=== PATIENT | female | born 1980 | race Caucasian/White ===

== ENCOUNTER 2021-04-03 12:35 | Emergency (ER) | payer BC, OTHER, SELFPAY ==
[2021-04-03 12:37] VITALS: BP 145/84; PULSE 87; RESP 16; TEMP 35.9; O2SAT 98; BMI 35.6
--- NOTE | 2021-04-03 14:21 | EDS_ITS ---
HPI History of Present Illness Chief Complaint: Cough Informant: patient Narrative Narrative: Patient started with Covid symptoms on Thursday. She was tested on Thursday and found to be positive. She contacted her physician and was recommended to come in here to get referral for monoclonal antibody therapy. Patient started with some sore throat and myalgias. She has had some mild fevers. She has had some slight cough but no productivity or dyspnea. No nausea vomiting diarrhea or abdominal pain. Nothing really makes her symptoms better or worse. She has not had vaccines. Her test was done through [facility] but sounds like might have been a home swab. For this reason I will order another one today although I will not make her stay for this. She does have symptoms, exposure and a positive test so I think this is truly positive. PFSH PFS Medical History Vitamin D deficiency Allergy/AdvReac Type Severity Reaction Status Date / Time codeine Allergy Anaphylaxis Verified 04/03/21 12:36 Social History Smoking Status: Never smoker ROS ROS ED Constitutional Constitutional ED: Reports fever(s) and subjective Eyes Eyes: Denies blurry vision ENT ENT ED: Reports rhinorrhea and sore throat Cardiovascular Cardiovascular: Denies chest pain or palpitations Respiratory/Chest Respiratory/Chest: Reports cough; Denies dyspnea or sputum Gastrointestinal Gastrointestinal: Denies abdominal pain, diarrhea, nausea or vomiting Genitourinary Genitourinary ED: Denies dysuria Musculoskeletal Musculoskeletal: Reports myalgias Integumentary Denies rash Neurologic Neurologic: Denies headache(s) Endocrine Endocrinology: Denies polydipsia or polyuria Allergic/Immunologic Allergic/Immunologic ED: Denies mouth swelling or urticaria EXAM Physical Exam Const Vital Signs: 04/03/21 12:37 04/03/21 13:02 Temperature 96.7 F L Temperature Source Temporal Pulse Rate 87 Respiratory Rate 16 Respiratory Effort Non-Labored Short of Breath Blood Pressure 145/84 H Blood Pressure Mean 104 Pulse Ox 98 Oxygen Delivery Method Room Air Positive well nourished, well developed and obese General Appearance ED: well developed and NAD Nutritional Appearance: obese HEENT Reports moist mucous membranes; Denies dry mucous membranes Negative for trauma or tenderness Mouth ED: No dry mucous membranes Mouth: No dry mucous membranes Eyes General Eye ED: Negative for pale conjunctiva or scleral icterus Neck no JVD Chest Wall inspection of chest normal Resp normal respiratory effort and clear to auscultation bilaterally Effort and Inspection: Negative for pain with movement Auscultation: Negative for rales, rhonchi or wheezes Cardio regular rate, regular rhythm and no murmurs GI normal to inspection, nondistended, normoactive bowel sounds and non-tender Palpation: soft Back/Spine no CVA tenderness Extremity normal to inspection General Extremety ED: Negative for edema or tenderness General Extremity: Negative for edema Neuro Sensorium / Orientation: alert Psych mental status grossly normal Skin no rashes or lesions noted MDM MDM MDM Narrative Medical decision making narrative: Patient has no hypoxia. She has no dyspnea. She is not having vomiting. I do not think she needs blood work or imaging. I will refer her for monoclonal therapy based on her symptoms, positive outpatient test and her BMI. Discharge Plan Triage Chief Complaint: Cough ED Provider: Ahsan Canas Dx/Rx/DC Orders Clinical Impression: COVID Instructions: Coronavirus Disease 2019 (COVID-19): Caring for Yourself or Others Other Ambulatory Orders: COVID Outpatient Monoclonal Antibody Referral (Routine) Timeframe: 1 Day Facility: [facility] - Location: [facility] Ordered By: Dr. Ahsan Canas Primary Care Provider: Care Physician,No Primary Referrals: Kim Avina MD [STAFF PHYSICIAN] - 1 Week if not improving Care Physician,No Primary [Primary Care Provider] - Disposition Disposition: Home, Self Care
== END 2021-04-03 14:36 | disposition home or self-care (01) ==
PROVIDERS: Emergency Provider Emergency Medicine
DX: U07.1 COVID-19 (principal); E66.9 Obesity, unspecified; Z68.36 Body mass index [BMI] 36.0-36.9, adult
CPT/HCPCS: 87635; 99283; U0005; U0003

== ENCOUNTER 2021-04-06 10:22 | Outpatient (CLI) | payer BC, OTHER, SELFPAY ==
[2021-04-06] MEDS: 0.9% Saline Lock 10 ML Syringe IV (10:46)
[2021-04-06 10:47] VITALS: BP 126/66; PULSE 85; RESP 16; TEMP 37.2; O2SAT 100; BMI 33.9
[2021-04-06 11:38] VITALS: BP 118/67; PULSE 80; RESP 16; TEMP 37.1; O2SAT 96
[2021-04-06 12:38] VITALS: BP 118/75; PULSE 79; RESP 16; TEMP 37.1; O2SAT 97
== END 2021-04-06 12:57 | disposition home or self-care (01) ==
LOC: MS3OUT 10:22 → MS3 10:24
PROVIDERS: Referring Provider Nurse Practitioner Adult Health; Visit Provider Nurse Practitioner Adult Health
DX: Z23 Encounter for immunization (principal); U07.1 COVID-19
CPT/HCPCS: J7050; M0245; Q0245; A4216

== ENCOUNTER 2022-09-27 09:18 | Emergency (ER) | payer BC, SELFPAY ==
[2022-09-27 09:19] VITALS: BP 162/100; PULSE 70; RESP 18; TEMP 36.2; O2SAT 99
[2022-09-27 09:28] VITALS: BMI 39.4
--- NOTE | 2022-09-27 09:43 | CT_ITS ---
STUDY: CT ABDOMEN AND PELVIS WITHOUT CONTRAST REASON FOR EXAM: Female, 41 years old. Pain -- Abrupt pain left lower quadrant RADIATION DOSAGE (If Supplied By Facility): CTDIvol = ( 22.27 ) mGy, DLP = ( 1190.57 ) mGycm TECHNIQUE: Transaxial images were obtained from the dome of the diaphragm to the symphysis pubis without oral contrast, and without intravenous contrast. Sagittal and coronal images were reconstructed. Individualized dose optimization techniques were used for this CT. COMPARISON: None. FINDINGS: The visualized lung bases are unremarkable. The visualized portions of the heart are within normal limits. Normal liver. There are surgical clips in the gallbladder fossa consistent with a prior cholecystectomy. Normal spleen. Normal pancreas. The right adrenal gland is moderately enlarged measuring 3.58 cm with dense peripheral rim calcification in its capsule most likely due to an old traumatic injury with an adrenal hematoma formation and calcification or sequela from prior inflammation or infection or granulomatous process with subsequent rim calcification. No malignant process is present. Normal left adrenal gland. A large simple cyst is present in the superior pole of the right kidney as well measuring 10.36 x 9.05 cm. The lower half of the right kidney is normal. No hydronephrosis is present. The left kidney is moderately atrophic. A 2 mm calyceal stone is seen in the lower pole of the left kidney. There are 3-4 small simple cysts within the left kidney as well. No left hydronephrosis or hydroureter is present. Moderately enlarged soft tissue mass of the left adnexa appears to represent an enlarged left ovary maximally measuring 7.29 x 6.84 cm, but it is difficult to separate the left adnexal mass from the left side of the uterus, therefore a pelvic ultrasound is recommended to determine if this is ovarian or disc is a left-sided uterine fibroid. The right adnexa is unremarkable. The uterus is otherwise unremarkable. Normal right kidney. Normal left kidney. Normal visualized stomach. Normal small intestine. Normal colon. The appendix is visualized and appears normal. Normal abdominal aorta. Normal inferior vena cava. Normal retroperitoneum. Normal urinary bladder. Normal abdominal wall. Normal osseous structures. CT/Abdomen/Pelvis without Cont IMPRESSION: 1. Moderately enlarged soft tissue mass of the left adnexa appears to represent an enlarged left ovary maximally measuring 7.29 x 6.84 cm, but it is difficult to separate the left adnexal mass from the left side of the uterus, therefore a pelvic ultrasound is recommended to determine if this is ovarian or disc is a left-sided uterine fibroid. The right adnexa is unremarkable. The uterus is otherwise unremarkable. 2. The right adrenal gland is moderately enlarged measuring 3.58 cm with dense peripheral rim calcification in its capsule most likely due to an old traumatic injury with an adrenal hematoma formation and calcification or sequela from prior inflammation or infection or granulomatous process with subsequent rim calcification. No malignant process is present. Normal left adrenal gland. 3. A large simple cyst is present in the superior pole of the right kidney as well measuring 10.36 x 9.05 cm. The lower half of the right kidney is normal. No hydronephrosis is present. 4. The left kidney is moderately atrophic. A 2 mm calyceal stone is seen in the lower pole of the left kidney. There are 3-4 small simple cysts within the left kidney as well. No left hydronephrosis or hydroureter is present. Electronically Signed: Michael Negrete MD at 12:32 EDT ,
[2022-09-27 10:06] LABS: Absolute Lymphocyte Count 0.97 X10^3/uL (0.83-4.51); Absolute Neutrophil Count 6.8 X10^3/uL (2.0-7.7); Basophil# 0.02 X10^3/uL; Basophil% 0.2 % (0-1); Eosinophil# 0.02 X10^3/uL; Eosinophils% 0.2 % (0-5); Hematocrit 35.1 % (37-47); Hemoglobin 10.7 g/dL (12.0-15.0); Lymphocyte # 0.97 X10^3/ul (0.83-4.51); Lymphocyte % 11.7 % (19-41); Mean Corp Hgb Conc 30.5 g/dL (32-36); Mean Corpuscular Hgb 23.5 pg (27.0-32.0); Mean Platelet Vol. 9.5 fl (6.2-12.0); Monocyte# 0.42 X10^3/uL; Monocyte% 5.1 % (0-10); NRBC Flagged by Analyzer 0 % (0-5); Neutrophil # 6.81 X10^3/uL (2.7-7.7); Neutrophil % 82.4 % (47-70); Platelet Count 235 K/mm3 (150-450); RBC Distribution Width CV 14.4 % (11.6-14.6); RBC Distribution Width SD 39.9 fl (35.1-43.9); Red Blood Count 4.56 M/mm3 (4.2-5.4); White Blood Count 8.3 K/mm3 (4.4-11.0)
[2022-09-27] MEDS: Ondansetron 4 MG/2 ML Vial IV (10:07)
[2022-09-27] MEDS: Ketorolac 15 MG/ML Vial IV (10:07)
[2022-09-27] MEDS: 0.9% Normal Saline 1,000 ML 125 ML IV (10:07)
--- NOTE | 2022-09-27 10:07 | EDS_ITS ---
HPI HPI - GI History of Present Illness Chief Complaint: Abd Pain Detail of Chief Complaint: Acute lower abdominal pain Informant: patient, spouse/S.O. and family Abdominal Pain/Flank Pain Onset: Today and Hours Context: Sudden Onset Timing: Continuous Quality: Sharp Location: RLQ and LLQ Current Severity: Moderate Maximum Severity: Severe Worsened by: Movement Relieved by: Nothing Nausea/Vomiting/Emesis GI Symptom: Positive for Nausea Onset: Hours Diarrhea/Melena/Hematochezia GI Symptom: Negative for Diarrhea, Melena or Hematochezia Associated Symptoms Associated Symptoms: Negative for Dysuria, Frequency, Hematuria or Urgency LMP: 1 week ago Narrative Narrative: Patient is a 41-year-old woman who presents with abrupt onset of lower abdominal pain while walking the dogs. She states she had similar episode when she was diagnosed with food poisoning. She does complain of nausea and vomiting into the emergency department. She denies diarrhea. Last bowel movement yesterday. No change in color, consistency or caliber of her stool. She denies dysuria, frequency, urgency or hematuria. She denies history of renal ureterolithiasis. She denies history of diverticulosis or diverticulitis. She has had problems with constipation. There is no history of trauma. Mother informed she has history of adrenal cyst. She is sexually active. She denies symptoms of . Last menses was 1 week ago and normal. She denies history of endometriosis or ovarian cyst. Prior similar symptoms: Yes (Food poisoning) Recent Illness/Hospitalization: No PFSH PFS Medical History (Updated 09/27/22 @ 15:[address] Clement Landeros MD) Encounter for screening for COVID-19 Vitamin D deficiency Home Medications benzonatate 100 mg capsule 200 mg PO TID PRN cough #30 caps 04/08/21 [Rx Last Taken Unknown] ketorolac 10 mg tablet 10 mg PO Q6H 5 days #20 tabs 09/27/22 [Rx Last Taken Unknown] Allergy/AdvReac Type Severity Reaction Status Date / Time codeine Allergy Anaphylaxis Verified 09/27/22 09:23 Social History (Updated 09/27/22 @ 10:[address] Clement Landeros MD) household members: spouse Smoking Status: Never smoker alcohol intake: current alcohol intake frequency: holidays/special occasions only substance use type: does not use ROS ROS ED Constitutional Constitutional ED: Reports chills; Denies fever(s), subjective, sweats or weight loss ENT ENT ED: Reports rhinorrhea and other Details: Rhinorrhea due to allergies. ; Denies ear pain or sore throat Cardiovascular Cardiovascular: Denies chest pain, orthopnea, palpitations, paroxysmal nocturnal dyspnea or racing heartbeat Respiratory/Chest Respiratory/Chest: Denies cough, dyspnea, dyspnea on exertion, orthopnea or paroxysmal nocturnal dyspnea Gastrointestinal Gastrointestinal: Reports abdominal pain, nausea and vomiting; Denies constipation, diarrhea or melena Genitourinary Genitourinary ED: Reports LMP (females 10-50) Details: Comment: (1 week ago and normal with regard to color, duration and flow); Denies dysuria, hematuria or urinary frequency Musculoskeletal Musculoskeletal: Denies arthralgias, back pain, myalgias or neck pain Integumentary Denies Abrasions or rash Neurologic Neurologic: Denies headache(s), paresthesias or weakness Psychiatric Psychiatric: Denies anxiety or depression Endocrine Endocrinology: Denies polydipsia, polyphagia or polyuria Hematologic/Lymphatic Hematologic/Lymphatic: Denies easy bleeding or easy bruising EXAM Physical Exam Const Vital Signs: 09/27/22 09:19 09/27/22 12:20 Temperature 97.1 F L Temperature Source Temporal Pulse Rate 70 70 Respiratory Rate 18 16 Blood Pressure 162/100 H 141/70 H Blood Pressure Mean 120 93 Pulse Ox 99 99 Oxygen Delivery Method Room Air Room Air Positive well nourished, well developed and obese; Negative for cachectic or contractures General Appearance ED: well developed; Negative for cachectic, contractures, NAD or pallor Nutritional Appearance: obese; Negative for cachectic HEENT Reports dry mucous membranes normocephalic and atraumatic Mouth ED: Yes dry mucous membranes Mouth: dry mucous membranes Eyes PERRL and EOMs intact bilaterally General Eye ED: Negative for pale conjunctiva or scleral icterus Neck no lymphadenopathy, supple and no JVD Resp normal respiratory effort and clear to auscultation bilaterally Cardio regular rate, regular rhythm, S1 normal heart sound, S2 normal heart sound and no murmurs GI non-distended and no masses; Negative for non-tender Auscultation: hypoactive bowel sounds Palpation: soft, tender LLQ and guarding; Negative for rigid, hepatomegaly, splenomegaly, hernia, mass, pulsatile mass or rebound tenderness present Back/Spine no CVA tenderness Lumbar Spine / Lower Back: Negative for lumbar spinal tenderness Neuro CN's II-XII intact bilaterally and moves all extremities Sensorium / Orientation: alert Psych Mood & Affect: depressed Skin no wounds General Skin Exam: Negative for jaundice or pallor Lesions: no lesions Rashes: no rashes MDM MDM MDM Narrative Medical decision making narrative: Miguel diagnosis would include ureteral lithiasis, ovarian cyst, diverticulosis pneumoperitoneum. Will obtain CT of the abdomen and pelvis without contrast and she has allergy to contrast and because she had angioedema with codeine will not treat with any opiate analgesic. She received 50 mg of acute relic for her pain and 4 mg of Zofran for her nausea. CBC, BMP and UA were obtained. History & Record Review Discussion w/independent historian: Patient, Family and Significant other Additional record(s) reviewed:: Prior ED visit (Seen in 2020 for COVID. There is no other records available for review.) Lab Data Labs: Laboratory Results - last 24 hr 09/27/22 09/27/22 09/27/22 10:00 10:00 10:53 WBC 8.3 RBC 4.56 Hgb 10.7 L Hct 35.1 L MCV 77.0 L MCH 23.5 L MCHC 30.5 L RDW Std Deviation 39.9 RDW Coeff of Maura 14.4 Plt Count 235 MPV 9.5 Immature Gran % (Auto) 0.400 Neut % (Auto) 82.4 H Lymph % (Auto) 11.7 L [place] % (Auto) 5.1 Eos % (Auto) 0.2 Baso % (Auto) 0.2 Absolute Neuts (auto) 6.8 Absolute Lymphs (auto) 0.97 Nucleated RBC % 0 Sodium 138 Potassium 4.5 Chloride 107 Carbon Dioxide 24.0 Anion Gap 7 BUN 13 Creatinine 0.92 Estim Creat Clear Calc 88.13 Est GFR (MDRD) Af Amer 86 Est GFR (MDRD) Non-Af 71 BUN/Creatinine Ratio 14.2 Glucose 117 H Calcium 8.8 Urine Color Yellow Urine Clarity Clear Urine pH 7.0 Ur Specific [place] 1.010 Urine Protein 15 H Urine Glucose (UA) Normal Urine Ketones 5 H Urine Occult Blood 250 H Urine Nitrite Negative Urine Bilirubin Negative Urine Urobilinogen Normal Ur Leukocyte Esterase 500 H Urine RBC 25-50 SEEN Urine WBC 0 SEEN Ur Squamous Epith Cells 0 SEEN Urine Bacteria 0 SEEN Urine Mucus 0 SEEN Radiography Diagnostic Testing: Clinical Impression(s) from Imaging Studies Abdomen/Pelvis CT 09/27/22 09:43 IMPRESSION: 1. Moderately enlarged soft tissue mass of the left adnexa appears to represent an enlarged left ovary maximally measuring 7.29 x 6.84 cm, but it is difficult to separate the left adnexal mass from the left side of the uterus, therefore a pelvic ultrasound is recommended to determine if this is ovarian or disc is a left-sided uterine fibroid. The right adnexa is unremarkable. The uterus is otherwise unremarkable. 2. The right adrenal gland is moderately enlarged measuring 3.58 cm with dense peripheral rim calcification in its capsule most likely due to an old traumatic injury with an adrenal hematoma formation and calcification or sequela from prior inflammation or infection or granulomatous process with subsequent rim calcification. No malignant process is present. Normal left adrenal gland. 3. A large simple cyst is present in the superior pole of the right kidney as well measuring 10.36 x 9.05 cm. The lower half of the right kidney is normal. No hydronephrosis is present. 4. The left kidney is moderately atrophic. A 2 mm calyceal stone is seen in the lower pole of the left kidney. There are 3-4 small simple cysts within the left kidney as well. No left hydronephrosis or hydroureter is present. Electronically Signed: Michael Negrete MD at 12:32 EDT , Transvaginal US 09/27/22 12:49 IMPRESSION: 1. 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 2. The uterus is mildly enlarged measuring 10.6 x 8.7 x 6.4 cm. The uterine parenchyma is diffusely heterogeneous with coarsening of the parenchymal echotexture suggesting endometriosis. 3. Further evaluation with MRI of the pelvis with and without contrast is recommended in the nonacute setting. 4. The blood flow and Doppler signal of the ovaries was not well documented on this study, as the technologist states it was difficult to ascertain. This does not necessarily represent torsion/loss of blood flow but may be difficult because of the due to the moderate to large sized ovarian cysts occupying most of the parenchyma. If there is concern for torsion the patient should be sent back to the ultrasound department with additional attempts at evaluating flow and Doppler signal. Electronically Signed: Michael Negrete MD at 15:33 EDT Reading Location ID and State: [address] [place] [address] , Service support , Treatment and Re-Evaluation :: The had several questions which were answered to her satisfaction. She also requested referral to aircraft engine technician. Patient was informed of CAT scan results. Since one of the differentials would include ovarian torsion ultrasound of the pelvis with Doppler flow was ordered. Patient was made aware of this. Ultrasound reveals a 6.3 x 5.0 x 4.5 cm avascular ovoid mass appears to represent a chocolate cyst/endometrioma. Normal ovarian follicles were noted at the periphery. The right ovary measured 4.4 x 4.0 x 3.3. Centimeters and debris-filled avascular small right ovarian follicular cyst noted. Discharge Plan Triage Chief Complaint: Abd Pain ED Provider: Clement Landeros Dx/Rx/DC Orders Clinical Impression: Acute abdominal pain in left lower quadrant, Kidney stone on left side, Renal cyst, right, Benign cyst of left kidney, Ovarian mass, left, Atrophy of left kidney, Mass of right adrenal gland, Blood pressure elevated without history of HTN, Follicular cyst of right ovary Instructions: Treatment for Ovarian Cysts Prescriptions: New ketorolac 10 mg tablet 10 mg PO Q6H 5 Days Qty: 20 0RF No Action benzonatate 100 mg capsule 200 mg PO TID PRN (Reason: cough) Qty: 30 0RF Primary Care Provider: Care Physician,No Primary Referrals: Luke Ramos MD [Med Staff - Active Staff] - 5-7 Days Onel Kirk MD [Med Staff - Courtesy Staff] - 1 Week Care Physician,No Primary [Primary Care Provider] - Disposition Disposition: Home, Self Care
[2022-09-27 10:27] LABS: Anion Gap 7 (5-15); BUN 13 mg/dL (7-18); BUN/Creat Ratio 14.2 RATIO (10-20); Calcium,Total 8.8 mg/dL (8.5-10.1); Chloride 107 mmol/L (98-107); Creatinine, Serum 0.92 mg/dL (0.55-1.02); EST Glomerular Filtration Rate 71 mL/min (>60); Est Glom Filt Rate - Afr Amer 86 mL/min (>60); Estimated Creatinine Clearance 88.13 ml/min; Glucose 117 mg/dL (74-106); Potassium 4.5 mmol/L (3.5-5.1); Sodium Level 138 mmol/L (136-145)
[2022-09-27 11:01] LABS: Bacteria 0 SEEN /hpf (None Seen); Mucous, Urine 0 SEEN /hpf (<or=2+); Squamous Epithelial Cells - UA 0 SEEN /hpf (5-10); White Blood Cells 0 SEEN /hpf (0-5)
[2022-09-27 11:11] LABS: Color, Urine Yellow (Yellow); Glucose, Dipstick Normal (Normal); Ketone-Dipstick 5 mg/dl (Negative); Leukocyte Esterase-Dipstick 500 /ul (Negative); Nitrite-Dipstick Negative (Negative); Occult Blood-Urine 250 /ul (Negative); Protein-Dipstick 15 mg/dl (Negative); Urine Bilirubin Dipstick Negative (Negative); Urine Clarity Clear (Clear); Urine Urobilinogen Normal (Normal)
[2022-09-27 11:14] LABS: Red Blood Cells-Urine 25-50 SEEN /hpf (0-5)
[2022-09-27 12:20] VITALS: BP 141/70; PULSE 70; RESP 16; O2SAT 99
--- NOTE | 2022-09-27 12:49 | US_ITS ---
PROCEDURE: ULTRASOUND OF THE FEMALE PELVIS - COMPLETE REASON FOR EXAM: Female, 41 years old. Left adnexal mass SEEN ON CT LLQ PAIN TECHNIQUE: Transabdominal and Transvaginal TECHNICAL QUALITY: Adequate. COMPARISON: CT of abdomen and pelvis dated September 27, 2022 FINDINGS: The uterus is anteverted and is in a midline position. The uterus is mildly enlarged measuring 10.6 x 8.7 x 6.4 cm. The uterine parenchyma is diffusely heterogeneous with coarsening of the parenchymal echotexture suggesting endometriosis. There is no demonstrated myometrial mass. The endometrium measures 7.4 mm in thickness, and is hyperechoic. There is no demonstrated endometrial mass. There is a Nabothian cyst of the cervix. The right ovary is visualized. The right ovary measures 4.4 x 4.0 x 3.3 cm. A debris-filled avascular small right ovarian follicular cyst is present measuring 3.23 x 2.77 cm likely representing a degenerated follicular cyst/hemorrhagic cyst. There is no visualized right adnexal mass or complex lesion. The left ovary is visualized. The left ovary measures 6.3 x 5.0 x 4.5 cm. 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 Normal ovarian follicles at the periphery of the left ovary. There is no visualized left adnexal mass or complex lesion. The blood flow and Doppler signal of the ovaries was not well documented on this study, as the technologist states it was difficult to ascertain. This does not necessarily represent torsion/loss of blood flow but may be difficult because of the due to the moderate to large sized ovarian cysts occupying most of the parenchyma. If there is concern for torsion the patient should be sent back to the ultrasound department with additional attempts at evaluating flow and Doppler signal. There is no fluid in the cul-de-sac. US/Transvaginal Non- IMPRESSION: 1. 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 2. The uterus is mildly enlarged measuring 10.6 x 8.7 x 6.4 cm. The uterine parenchyma is diffusely heterogeneous with coarsening of the parenchymal echotexture suggesting endometriosis. 3. Further evaluation with MRI of the pelvis with and without contrast is recommended in the nonacute setting. 4. The blood flow and Doppler signal of the ovaries was not well documented on this study, as the technologist states it was difficult to ascertain. This does not necessarily represent torsion/loss of blood flow but may be difficult because of the due to the moderate to large sized ovarian cysts occupying most of the parenchyma. If there is concern for torsion the patient should be sent back to the ultrasound department with additional attempts at evaluating flow and Doppler signal. Electronically Signed: Michael Negrete MD at 15:33 EDT ,
== END 2022-09-27 16:09 | disposition home or self-care (01) ==
PROVIDERS: Emergency Provider Emergency Medicine; Visit Provider Emergency Medicine
DX: N20.0 Calculus of kidney (principal); E27.9 Disorder of adrenal gland, unspecified; N26.1 Atrophy of kidney (terminal); N28.1 Cyst of kidney, acquired; N83.8 Other noninflammatory disorders of ovary, fallopian tube and broad ligament; E66.9 Obesity, unspecified; N83.01 Follicular cyst of right ovary
CPT/HCPCS: 74176; 76830; 80048; 81001; 85025; 96361; 96374; 96375; 99285; J7030; A4216; J2405

== ENCOUNTER → 2022-10-10 | Outpatient (CLI) | payer BC, SELFPAY ==
--- NOTE | 2022-10-10 12:53 | US_ITS ---
HISTORY: ovarian cyst follow up -- in E.D. on09/27/22 for LLQ pain. TECHNIQUE: Transabdominal and transvaginal pelvic ultrasound was performed with beaver scale , spectral Doppler, and color Doppler evaluation. 98 images. COMPARISON: 09/27/2022. FINDINGS: UTERUS: 11.7 x 5.3 x 8.5 cm. Heterogeneous echotexture. ENDOMETRIAL THICKNESS: 1.8 cm. RIGHT OVARY: 3.3 x 4.2 x 3.9 cm. Vascular flow demonstrated. 2.2 x 3.2 x 2.4 cm cyst with internal lacy echoes, previously 2.8 x 3.2 cm. LEFT OVARY: 6.1 x 6.1 x 6.3 cm. Vascular flow demonstrated. 3.4 x 4.3 x 3.6 cm cyst with internal echoes and thin septation, previously 3.3 x 3.7 x 5 cm. FREE FLUID: None. URINARY BLADDER: Unremarkable at 437 cc. US/Pelvic w/ Transvaginal IMPRESSION: No significant interval change in size of bilateral complex ovarian lesions, which may represent endometriomas or hemorrhagic cysts. Heterogeneous uterus. Again, consider MRI correlation. Electronically Signed: Marylin Montgomery MD at 10:57 EDT ,
== END | disposition home or self-care (01) ==
PROVIDERS: PCP Internal Medicine; Referring Provider Obstetrics & Gynecology; Visit Provider Obstetrics & Gynecology
DX: N83.8 Other noninflammatory disorders of ovary, fallopian tube and broad ligament (principal)
CPT/HCPCS: 76830; 76856

== ENCOUNTER → 2022-12-08 | Outpatient (CLI) | payer BC, OTHER, SELFPAY ==
[2022-12-08 15:16] LABS: Absolute Lymphocyte Count 1.91 X10^3/uL (0.83-4.51); Basophil# 0.04 X10^3/uL; Basophil% 0.5 % (0-1); Eosinophil# 0.07 X10^3/uL; Eosinophils% 0.9 % (0-5); Hematocrit 34.9 % (37-47); Hemoglobin 10.4 g/dL (12.0-15.0); Lymphocyte # 1.91 X10^3/ul (0.83-4.51); Lymphocyte % 24.9 % (19-41); Mean Corp Hgb Conc 29.8 g/dL (32-36); Mean Corpuscular Hgb 21.2 pg (27.0-32.0); Mean Corpuscular Volume 71.1 fL (81-99); Mean Platelet Vol. 9.8 fl (6.2-12.0); Monocyte# 0.62 X10^3/uL; Monocyte% 8.1 % (0-10); NRBC Flagged by Analyzer 0 % (0-5); Neutrophil # 4.99 X10^3/uL (2.7-7.7); Neutrophil % 65.2 % (47-70); Platelet Count 265 K/mm3 (150-450); RBC Distribution Width CV 16.9 % (11.6-14.6); RBC Distribution Width SD 42.4 fl (35.1-43.9); Red Blood Count 4.91 M/mm3 (4.2-5.4); White Blood Count 7.7 K/mm3 (4.4-11.0)
[2022-12-08 16:04] LABS: AST(SGOT) 28 U/L (15-37); Alanine Aminotransfer ALT/SGPT 43 U/L (13-56); Albumin, Serum 3.7 g/dL (3.2-5.0); Alkaline Phosphatase 67 U/L (45-117); Anion Gap 5 (5-15); BUN 15 mg/dL (7-18); BUN/Creat Ratio 17.2 RATIO (10-20); Calcium,Total 8.8 mg/dL (8.5-10.1); Chloride 106 mmol/L (98-107); Cholesterol 185 mg/dL (200); Creatinine, Serum 0.87 mg/dL (0.55-1.02); EST Glomerular Filtration Rate 75 mL/min (>60); Est Glom Filt Rate - Afr Amer 91 mL/min (>60); Ferritin 6 ng/mL (8-252); Globulin 3.6 g/dL (2.2-4.2); Glucose 88 mg/dL (74-106); High Density Lipoprotein 46 mg/dL; Iron 33 ug/dL (50-170); Iron Binding Capacity,Total 485 ug/dL (250-450); Potassium 4.3 mmol/L (3.5-5.1); Protein, Total 7.3 g/dL (6.4-8.2); Sodium Level 136 mmol/L (136-145); Triglycerides 220 mg/dL; Very Low Density Lipoprotein 44 mg/dL (5-40)
== END | disposition home or self-care (01) ==
LOC: BIMLAB 14:15
PROVIDERS: PCP Internal Medicine; Referring Provider Internal Medicine; Visit Provider Internal Medicine
DX: D64.9 Anemia, unspecified (principal); E78.5 Hyperlipidemia, unspecified
CPT/HCPCS: 36415; 80053; 80061; 82728; 83540; 83550; 85025

== ENCOUNTER → 2022-12-12 | Outpatient (CLI) | payer BC, SELFPAY ==
--- NOTE | 2022-12-12 08:28 | MRI_ITS ---
EXAM: MR PELVIS WITH INTRAVENOUS CONTRAST CLINICAL INDICATION: ovarian mass TECHNIQUE: Multiplanar and multisequence MR images of the pelvis with intravenous contrast. CONTRAST: IV 23cc Clariscan COMPARISON: No relevant prior studies available. FINDINGS: INTRAPERITONEAL SPACE: Normal. No free pelvic fluid. BLADDER: The urinary bladder is empty. OVARIES: A bilobed pelvic mass located posterior to the uterus measures 10 x 7 x 6 cm. The right-sided component demonstrates low T1 and increased T2 signal intensity suggestive of hyaline content lesion. The left-sided component demonstrates increased T1 and decreased T2 signal intensity which suggest the presence of blood products. Portion of the right-sided lesion demonstrates similar signal intensity suggestive of blood products. These findings would suggest confluent acute and/or chronic endometriomas. The peripheral portion of the mass demonstrates avid contrast-enhancement. UTERUS/CERVIX: Uterus measures 10.7 cm in length. Endometrial thickness is 12 mm. There is diffuse heterogeneous signal intensity within the myometrium suggestive of diffuse fibroid involvement. Defect along the anterior lower myometrium suggestive of scar. BONES/JOINTS: Normal. SOFT TISSUES: Normal. No pelvic wall hernia. LYMPH NODES: Normal. No enlarged lymph nodes. MRI/Pelvis W/WO Contrast IMPRESSION: 1. Bilobed pelvic mass with signal characteristics suggestive of endometriomas. 2. Mildly enlarged fibroid uterus. Electronically Signed: Barron Calvo MD at 16:17 EDT ,
== END | disposition home or self-care (01) ==
PROVIDERS: PCP Internal Medicine; Referring Provider Obstetrics & Gynecology; Visit Provider Obstetrics & Gynecology
DX: N83.8 Other noninflammatory disorders of ovary, fallopian tube and broad ligament (principal)
CPT/HCPCS: 72197; A9585

== ENCOUNTER → 2022-12-25 | Outpatient (CLI) | payer BC, OTHER, SELFPAY | END | disposition home or self-care (01) | LOC: PSN 07:56 | PROVIDERS: PCP Internal Medicine; Referring Provider Internal Medicine; Visit Provider Internal Medicine | DX: I10 Essential (primary) hypertension (principal) | CPT/HCPCS: 93005 ==

== ENCOUNTER → 2023-03-16 | Outpatient (CLI) | payer BC, OTHER, SELFPAY ==
[2023-03-16 12:16] LABS: Absolute Lymphocyte Count 1.62 X10^3/uL (0.83-4.51); Absolute Neutrophil Count 3.5 X10^3/uL (2.0-7.7); Basophil# 0.01 X10^3/uL; Basophil% 0.2 % (0-1); Eosinophil# 0.12 X10^3/uL; Eosinophils% 2.1 % (0-5); Hemoglobin 12.2 g/dL (12.0-15.0); Lymphocyte # 1.62 X10^3/ul (0.83-4.51); Lymphocyte % 28.3 % (19-41); Mean Corp Hgb Conc 31.3 g/dL (32-36); Mean Corpuscular Hgb 24.8 pg (27.0-32.0); Mean Corpuscular Volume 79.4 fL (81-99); Mean Platelet Vol. 9.6 fl (6.2-12.0); Monocyte# 0.42 X10^3/uL; Monocyte% 7.3 % (0-10); NRBC Flagged by Analyzer 0 % (0-5); Neutrophil # 3.53 X10^3/uL (2.7-7.7); Neutrophil % 61.8 % (47-70); Platelet Count 239 K/mm3 (150-450); RBC Distribution Width CV 17.2 % (11.6-14.6); RBC Distribution Width SD 49.6 fl (35.1-43.9); Red Blood Count 4.91 M/mm3 (4.2-5.4); White Blood Count 5.7 K/mm3 (4.4-11.0)
[2023-03-16 12:33] LABS: Ferritin 36 ng/mL (8-252); Iron 208 ug/dL (50-170); Iron Binding Capacity,Total 382 ug/dL (250-450)
== END | disposition home or self-care (01) ==
LOC: BIMLAB 08:40
PROVIDERS: PCP Internal Medicine; Referring Provider Internal Medicine; Visit Provider Internal Medicine
DX: D64.9 Anemia, unspecified (principal)
CPT/HCPCS: 36415; 82728; 83540; 83550; 85025

== ENCOUNTER → 2023-04-13 | Outpatient (CLI) | payer BC, OTHER, SELFPAY ==
[2023-04-17 14:09] LABS: HPV APTIMA, High Risk Negative (Negative)
== END | disposition home or self-care (01) ==
PROVIDERS: Obstetrics & Gynecology; PCP Internal Medicine; Referring Provider Internal Medicine; Visit Provider Internal Medicine
DX: Z12.4 Encounter for screening for malignant neoplasm of cervix (principal); G47.10 Hypersomnia, unspecified
CPT/HCPCS: 87624; 88175; 95806; G0145

== ENCOUNTER → 2023-05-18 | Outpatient (CLI) | payer BC, SELFPAY ==
--- NOTE | 2023-05-18 08:16 | MRI_ITS ---
EXAM: MR PELVIS WITHOUT AND WITH INTRAVENOUS CONTRAST CLINICAL INDICATION: bilateral endometriomas TECHNIQUE: Multiplanar and multisequence MR images of the pelvis without and with intravenous contrast. CONTRAST: IV 22ml Clariscan COMPARISON: Pelvic ultrasound 10/10/2022, MR Pelvis dated 12/12/2022 FINDINGS: APPENDIX: No evidence of acute appendicitis. INTRAPERITONEAL SPACE: There is no free pelvic fluid. BLADDER: Normal. OVARIES: Bilobed collection again noted posterior to the uterus again noted without significant interval change with signal characteristics again highly suggestive of endometrioma. 4.6 cm component of the right-sided lesion is no longer seen which in retrospect may have represented a dominant ovarian follicular cyst rather than an endometrioma. There are small cystic areas along the periphery of the bilobed endometrioma which may represent follicular cysts involving both ovaries. UTERUS/CERVIX: Uterus measures 9.9 x 5.6 x 6.7 cm. Endometrial thickness is 6.5 mm. Heterogeneous signal intensity within the myometrium which may represent diffuse fibroid involvement or possibly changes of adenomyosis. However, no changes of the endometrium as can be seen with adenomyosis. Deformity of the anterior myometrium again noted related to scar. BONES/JOINTS: Normal. SOFT TISSUES: Normal. No pelvic wall hernia. LYMPH NODES: Normal. No enlarged lymph nodes. MRI/Pelvis W/WO Contrast IMPRESSION: 1. No significant change in the bilobed suspected endometrioma which appears to involve both ovaries. 2. Uterine findings which may represent diffuse fibroid involvement or adenomyosis. 3. Interval resolution of the 4.6 cm right-sided cystic lesion which presumably had represented ovarian follicle or corpus luteum. Electronically Signed: Barron Calvo MD at 11:53 EST ,
[2023-05-18 08:43] LABS: CREATININE FINGERSTICK < 1.0 mg/dL (0.55-1.02); EGFR FINGERSTICK > 60.0000 mL/min (>60)
== END | disposition home or self-care (01) ==
LOC: MRI 08:14
PROVIDERS: PCP Internal Medicine; Visit Provider Obstetrics & Gynecology
DX: N80.129 Deep endometriosis of ovary, unspecified ovary (principal)
CPT/HCPCS: 72197; A9575

== ENCOUNTER → 2023-05-25 | Outpatient (CLI) | payer BC, SELFPAY ==
[2023-05-25 13:09] LABS: Anion Gap 5 (5-15); BUN 17 mg/dL (7-18); BUN/Creat Ratio 19.4 RATIO (10-20); Calcium,Total 9.4 mg/dL (8.5-10.1); Chloride 105 mmol/L (98-107); Creatinine, Serum 0.88 mg/dL (0.55-1.02); EST Glomerular Filtration Rate 75 mL/min (>60); Est Glom Filt Rate - Afr Amer 90 mL/min (>60); Glucose 118 mg/dL (74-106); Potassium 4.5 mmol/L (3.5-5.1); Sodium Level 139 mmol/L (136-145)
[2023-05-26 04:07] LABS: DHEA Sulfate 47.3 ug/dL (57.3-279.2)
== END | disposition home or self-care (01) ==
LOC: BIMLAB 08:09
PROVIDERS: Internal Medicine Endocrinology, Diabetes & Metabolism; PCP Internal Medicine; Referring Provider Internal Medicine; Visit Provider Internal Medicine
DX: I10 Essential (primary) hypertension (principal); E27.8 Other specified disorders of adrenal gland
CPT/HCPCS: 36415; 80048; 82627; 82626

== ENCOUNTER → 2023-09-11 | Outpatient (CLI) | payer BC, SELFPAY ==
[2023-09-11 08:59] LABS: Anion Gap 5 (5-15); BUN 18 mg/dL (7-18); BUN/Creat Ratio 20.1 RATIO (10-20); Calcium,Total 9.2 mg/dL (8.5-10.1); Chloride 101 mmol/L (98-107); EST Glomerular Filtration Rate 72 mL/min (>60); Est Glom Filt Rate - Afr Amer 88 mL/min (>60); Glucose 112 mg/dL (74-106); Sodium Level 137 mmol/L (136-145)
== END | disposition home or self-care (01) ==
LOC: LAB 07:23
PROVIDERS: PCP Internal Medicine; Referring Provider Internal Medicine; Visit Provider Internal Medicine
DX: I10 Essential (primary) hypertension (principal)
CPT/HCPCS: 36415; 80048

== ENCOUNTER → 2023-10-02 | Outpatient (CLI) | payer BC, SELFPAY ==
[2023-10-02 07:58] LABS: Hemoglobin A1c 5.7 % (3.8-5.6)
== END | disposition home or self-care (01) ==
LOC: LAB 07:27
PROVIDERS: PCP Internal Medicine; Referring Provider Internal Medicine; Visit Provider Internal Medicine
DX: R73.9 Hyperglycemia, unspecified (principal)
CPT/HCPCS: 36415; 83036

== ENCOUNTER 2023-12-07 13:27 | Outpatient (RCR) | payer BC, SELFPAY | END 2024-01-02 23:59 | LOC: EMPH 13:27 | PROVIDERS: PCP Internal Medicine | DX: Z03.818 Encounter for observation for suspected exposure to other biological agents ruled out (principal) | CPT/HCPCS: 87811 ==

== ENCOUNTER → 2024-03-21 | Outpatient (CLI) | payer BC, SELFPAY ==
[2024-03-21 07:58] LABS: Absolute Lymphocyte Count 2.17 X10^3/uL (0.83-4.51); Absolute Neutrophil Count 3.8 X10^3/uL (2.0-7.7); Basophil# 0.04 X10^3/uL; Basophil% 0.6 % (0-1); Eosinophil# 0.08 X10^3/uL; Eosinophils% 1.2 % (0-5); Hematocrit 41.3 % (37-47); Hemoglobin 13.6 g/dL (12.0-15.0); Lymphocyte # 2.17 X10^3/ul (0.83-4.51); Lymphocyte % 32.7 % (19-41); Mean Corp Hgb Conc 32.9 g/dL (32-36); Mean Corpuscular Volume 82.1 fL (81-99); Mean Platelet Vol. 9.8 fl (6.2-12.0); Monocyte# 0.53 X10^3/uL; NRBC Flagged by Analyzer 0 % (0-5); Neutrophil # 3.79 X10^3/uL (2.7-7.7); Neutrophil % 57.2 % (47-70); Platelet Count 199 K/mm3 (150-450); RBC Distribution Width CV 13.2 % (11.6-14.6); RBC Distribution Width SD 39.3 fl (35.1-43.9); Red Blood Count 5.03 M/mm3 (4.2-5.4); White Blood Count 6.6 K/mm3 (4.4-11.0)
[2024-03-21 09:00] LABS: ALB/GLOB Ratio 1.1 RATIO (0.9-2.4); AST(SGOT) 30 U/L (15-37); Alanine Aminotransfer ALT/SGPT 45 U/L (13-56); Albumin, Serum 3.9 g/dL (3.2-5.0); Alkaline Phosphatase 56 U/L (45-117); Anion Gap 5 (5-15); BUN 17 mg/dL (7-18); BUN/Creat Ratio 17.7 RATIO (10-20); Calcium,Total 9.1 mg/dL (8.5-10.1); Chloride 102 mmol/L (98-107); Creatinine, Serum 0.96 mg/dL (0.55-1.02); EST Glomerular Filtration Rate 67 mL/min (>60); Est Glom Filt Rate - Afr Amer 81 mL/min (>60); Globulin 3.6 g/dL (2.2-4.2); Glucose 113 mg/dL (74-106); Potassium 4.2 mmol/L (3.5-5.1); Protein, Total 7.5 g/dL (6.4-8.2); Sodium Level 138 mmol/L (136-145); T4 Free Direct 1.04 ng/dL (0.76-1.46)
== END | disposition home or self-care (01) ==
LOC: LAB 07:41
PROVIDERS: PCP Internal Medicine; Referring Provider Internal Medicine; Visit Provider Internal Medicine
DX: I10 Essential (primary) hypertension (principal)
CPT/HCPCS: 36415; 80053; 84439; 84443; 85025

== ENCOUNTER → 2024-08-11 | Outpatient (CLI) | payer OTHER, SELFPAY ==
--- NOTE | 2024-08-11 16:59 | BI_ITS ---
EXAM: SCRN MAMM (CAD)W/TOÑO BILAT DATE: 08/11/2024 CLINICAL HISTORY: F, Age 43 y/o , SCREEN BREAST CANCER RISK ASSESSMENT: Has not been calculated. TECHNIQUE: Bilateral screening digital breast tomosynthesis with 2D and 3D images. Computer aided detection. COMPARISON: Prior exam(s) dated 05/11/2020 and 02/01/2019. FINDINGS: TISSUE DENSITY: The breast tissue is composed of scattered area of fibroglandular density. Bilateral Breast Mammographic Findings: There are no suspicious masses, suspicious clustered microcalcifications, architectural distortion or secondary signs of malignancy identified in either breast. Benign-appearing round microcalcifications are seen in both breasts. BI/SCRN MAMM (CAD)W/TOÑO BILAT IMPRESSION: Right Breast: BIRADS 2 BENIGN FINDING. Left Breast: BIRADS 2 BENIGN FINDING. OVERALL FINAL ASSESSMENT: BIRADS 2 BENIGN FINDING RECOMMENDATION: Routine annual follow-up in 1 Year A letter with findings and recommendations will be mailed to the patient. Reading Location: [id number]
== END | disposition home or self-care (01) ==
LOC: OPBI 08-12 07:18
PROVIDERS: PCP Internal Medicine; Referring Provider Obstetrics & Gynecology; Visit Provider Obstetrics & Gynecology
DX: Z12.31 Encounter for screening mammogram for malignant neoplasm of breast (principal)
CPT/HCPCS: 77063; 77067